=== PATIENT | female | born 1970 | race Caucasian/White ===

== ENCOUNTER 2020-09-14 10:57 | Emergency (ER) | payer MEDICARE, OTHER ==
[~2020-09-14 10:57] MED LIST: NORCO 5-325 TA1 EACH PO; VENTOLIN HFA 66.7 GM INH
[2020-09-14] MEDS ORDERED: IBU800 MG PO (13:24)
[2020-09-14] MEDS ORDERED: MEDROL DOSEPAK 24 MG PO (13:24)
== END 2020-09-14 13:54 | disposition home or self-care (01) ==
LOC: ER1 10:57
DX: M25.562 Pain in left knee (principal); J45.909 Unspecified asthma, uncomplicated; F17.210 Nicotine dependence, cigarettes, uncomplicated; Z79.899 Other long term (current) drug therapy
CPT/HCPCS: 29530; 73564; 96372; 99283; J1100

== ENCOUNTER → 2020-10-07 | Outpatient (CLI) | payer MEDICARE, OTHER ==
[~2020-10-07] MED LIST changes: +IBU800 MG PO; +MEDROL DOSEPAK 24 MG PO
== END ==
LOC: KOH-I 08:33
DX: S83.242A Other tear of medial meniscus, current injury, left knee, initial encounter (principal); M25.462 Effusion, left knee; M71.22 Synovial cyst of popliteal space [Baker], left knee
CPT/HCPCS: 73721